=== PATIENT | female | born 1965 | race Caucasian/White ===

== ENCOUNTER 2016-08-31 18:13 | Emergency (ER) | payer OTHER ==
[~2016-08-31 18:13] MED LIST: DILAUDID IV ONE
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
--- NOTE | 2016-08-31 18:53 | Diag Imaging Result Document ---
PROCEDURE NAME: HEAD/C-SPINE W/O CONTRAST - 08/31/2016 STUDY: CT brain and cervical spine without. BRAIN: No parenchymal hemorrhage. No epidural or subdural hematoma. No subarachnoid hemorrhage. No skull fracture. There are chronic microvascular ischemic changes. No hydrocephalus. No sinus opacification. IMPRESSION: 1. No hemorrhage. No injury. 2. Hypodense areas consistent with microvascular ischemic changes. This is somewhat pronounced given the patient's age. CERVICAL SPINE WITHOUT CONTRAST: There has been extensive fusion from C3 through C7. There is degenerative bone spurring at C2-3. Mild loss of normal curvature. No precervical soft tissue swelling. No subluxation. No fracture. IMPRESSION: No acute bony injury. A preliminary report was given at 6:23 p.m.
--- NOTE | 2016-08-31 18:55 | Diag Imaging Result Document ---
PROCEDURE NAME: LUMBAR SPINE W/O CONTRAST - 08/31/2016 STUDY: CT lumbar spine without contrast. There has been extensive surgery with fusion of the L3, L4, and L5 vertebrae. There is good alignment to the lumbar spine. No compressed vertebrae. No other fracture. There are vacuum disks throughout the lumbar spine. No retroperitoneal hematoma. IMPRESSION: No acute bony injury. A preliminary report was given at 6:25 p.m.
[2016-08-31] MEDS ORDERED: DECADRON IM ONE (21:50)
[2016-08-31 22:01] VITALS: BP 146/82
--- NOTE | 2016-09-01 08:21 | Diag Imaging Result Document ---
PROCEDURE NAME: XRAY PELVIS W/HIP 2-3VW LT - 08/31/2016 PLAIN RADIOGRAPHS OF THE PELVIS AND LEFT HIP, 2 VIEWS: COMPARISON: None available. FINDINGS: There has been multilevel lumbar fusion. Pedicle screws and rods are in place. There is no evidence of fracture, dislocation, or intrinsic osseous lesion involving the pelvis or hips. The hip joint spaces appear to be preserved. Surrounding soft tissues are grossly unremarkable. IMPRESSION: No evidence of acute osseous abnormality.
--- NOTE | 2016-09-01 08:25 | Diag Imaging Result Document ---
PROCEDURE NAME: CHEST-1 VIEW - 08/31/2016 SINGLE FRONTAL RADIOGRAPH OF THE CHEST: COMPARISON: None available. FINDINGS: There is a small nodular density at the right lung base. It appears to be calcified indicating a calcified granuloma. Follow-up chest radiograph is recommended in 6 months to assure stability, however. The lungs are clear otherwise. There is no definite pleural fluid collection. Cardiac silhouette and central vasculature are grossly unremarkable. IMPRESSION: Small nodule at the right lung base that is likely calcified indicating a granuloma. However, follow-up chest radiography is recommended.
--- NOTE | 2016-09-01 08:32 | Diag Imaging Result Document ---
PROCEDURE NAME: ELBOW COMPLETE LEFT - 08/31/2016 PLAIN RADIOGRAPH OF THE LEFT ELBOW, 3 VIEWS: COMPARISON: None available. FINDINGS: There is no discrete fracture, dislocation, or intrinsic osseous lesion. The visualized joint spaces are essentially unremarkable. The surrounding soft tissues are grossly unremarkable. IMPRESSION: No evidence of acute osseous abnormality.
== END 2016-08-31 22:10 | disposition home or self-care (01) ==
LOC: EDBD → ED 18:13
DX: S50.02XA Contusion of left elbow, initial encounter (principal); S70.02XA Contusion of left hip, initial encounter; M79.1 Myalgia; M54.5 Low back pain; M54.2 Cervicalgia; R07.89 Other chest pain; M25.552 Pain in left hip; R20.0 Anesthesia of skin; R20.2 Paresthesia of skin; G89.29 Other chronic pain; F32.9 Major depressive disorder, single episode, unspecified; F31.9 Bipolar disorder, unspecified; E66.9 Obesity, unspecified; F17.210 Nicotine dependence, cigarettes, uncomplicated; Z79.899 Other long term (current) drug therapy; Z71.6 Tobacco abuse counseling; V89.2XXA Person injured in unspecified motor-vehicle accident, traffic, initial encounter
CPT/HCPCS: 70450; 71010; 72125; 72131; J1170